=== PATIENT | female | born 1930 | race Caucasian/White ===

== ENCOUNTER → 2018-01-15 | Outpatient (CLI) | payer MEDICARE ==
[~2018-01-15] MED LIST: ALLOPURINOL100 MG PO; AMLODIPINE BESY10 MG PO; ASPIR 8181 MG PO; CARVEDILOL12.5 MG PO; CLINDAMYCIN HC150 MG PO; DIOVAN80 MG PO; FUROSEMIDE40 MG PO; PLAVIX75 MG PO
--- NOTE | 2018-01-15 17:38 | Diagnostic Imaging Report ---
PROCEDURE: Frontal and lateral views of the chest. COMPARISON: Patients [facility], DX, CHEST 2 VIEWS, 07/24/2015, 8:48. Patients [facility], DX, CHEST 2 VIEWS, 09/20/2016, 11:52. INDICATIONS: BREAST CANCER, LEFT SIDE CHEST MASSES, RIGHT HIP PAIN FINDINGS: Lines/tubes: None. Lungs: The lungs are well inflated and grossly clear. Mild increased attenuation in the lateral right midlung is stable and likely represents overlying soft tissue. There is no evidence of consolidation or pulmonary edema. Pleura: There is no pleural effusion or pneumothorax. Heart and mediastinum: Cardiac silhouette is unremarkable. Pulmonary vasculature is normal. Bones: No acute bony abnormality. IMPRESSION: 1. no consolidation or effusion. 2. Mildly increased attenuation in the lateral right midlung is stable and likely represents overlying soft tissue. CT chest may be obtained for further evaluation, if there is clinical concern for pulmonary metastases Mannie Lau M.D. Dictated by: Mannie Lau M.D. on 01/15/2018 at 17:43 Electronically approved by: Mannie Lau M.D. on 01/15/2018 at 17:43
--- NOTE | 2018-01-15 18:44 | Diagnostic Imaging Report ---
PROCEDURE:HIP RIGHT 2-3 VW (+/- PELVIS) COMPARISON:None. INDICATIONS:RIGHT HIP PAIN FINDINGS: BONES:Generalized osteopenia, which limits evaluation of the bony structures. Orthopedic hardware in the proximal right femur, which is intact and in satisfactory alignment. Moderate degenerative changes in the right hip joint. No lytic or blastic lesions. No acute, displaced fractures or dislocations. SOFT TISSUES:Vascular calcifications.. OTHER:Negative. CONCLUSION: 1. Generalized osteopenic which limits evaluation of bony structures. No acute displaced fracture or dislocation, within the limitations of the study. 2. Intact orthopedic hardware in the proximal right femur. 3. Vascular calcifications. Mannie Lau M.D. Dictated by: Mannie Lau M.D. on 01/15/2018 at 18:48 Electronically approved by: Mannie Lau M.D. on 01/15/2018 at 18:48
== END ==
LOC: RAD 16:21
PROVIDERS: ATTEND Family Medicine
DX: C50.419 Malignant neoplasm of upper-outer quadrant of unspecified female breast (principal); M25.551 Pain in right hip
CPT/HCPCS: 71046

== ENCOUNTER 2018-01-22 00:02 | Inpatient (IN) | payer MEDICARE ==
[2018-01-22] VITALS (7 sets, daily range): BP systolic 125–166; BP diastolic 58–69
[~2018-01-22] VITALS: Ht 152.4 cm; Wt 58.7 kg
[2018-01-22 01:16] LABS: BASOPHILS % 0.2 % (0.0-1.0); EOSINOPHILS # (AUTO) 0.3 (0.0-0.4); EOSINOPHILS % 1.9 % (0.0-6.0); HEMOGLOBIN 9.2 g/dL (12.0-16.0); LYMPHOCYTES # (AUTO) 1.5 (1.0-3.2); LYMPHOCYTES % 9.6 % (18.0-39.1); MEAN CORPUSCULAR HEMOGLOBIN 29.1 pg (28-32); MEAN CORPUSCULAR HGB CONC 31.7 g/dL (31-35); MEAN CORPUSCULAR VOLUME 91.8 fL (81-99); MONOCYTES # (AUTO) 1.3 (0.2-0.8); MONOCYTES % 8.2 % (4.4-11.3); NEUTROPHILS # (AUTO) 12.3 (2.1-6.9); NEUTROPHILS % 79.6 % (38.7-80.0); PLATELET COUNT 350 x10e3/uL (140-360); RED BLOOD COUNT 3.16 x10e6/uL (3.6-5.1); RED CELL DISTRIBUTION WIDTH 14.6 % (11.7-14.4)
[2018-01-22 01:34] LABS: INR 1.13; PROTHROMBIN TIME 13.6 seconds (11.9-14.5)
[2018-01-22 01:35] LABS: PARTIAL THROMBOPLASTIN TIME 47.1 seconds (23.8-35.5)
[2018-01-22 01:43] LABS: ALBUMIN 3.5 g/dL (3.5-5.0); ANION GAP 15.1 mmol/L (8-16); CREATININE, SERUM 1.77 mg/dL (0.57-1.11); POTASSIUM 5.1 mmol/L (3.5-5.1)
[2018-01-22] MEDS ORDERED: SODIUM CHLORIDE 0.9% 1000ML 1,000 ML ONE (02:28)
[2018-01-22] MEDS ORDERED: ONDANSETRON HCL INJ 2 MG/ML VIAL IV PRN (02:45)
[2018-01-22] MEDS ORDERED: ACETAMINOPHEN 325 MG TAB PO PRN (02:45)
[2018-01-22] MEDS ORDERED: MORPHINE SULFATE 2 MG/ML SYR IV PRN (02:45)
[2018-01-22] MEDS: SODIUM CHLORIDE 0.9% 1000ML 1,000 ML IV SCH ×2 (03:00→20:00)
[2018-01-22] MEDS: CLINDAMYCIN 600MG/D5W 50ML 50 ML IV SCH ×3 (03:00→17:58)
[2018-01-22] MEDS: PIPERACILLIN/TAZO 2.25 GM 50 ML IV SCH ×3 (03:35→17:16)
[2018-01-22] MEDS ORDERED: POTASSIUM CHLO20 ME1 PO (03:35)
[2018-01-22] MEDS ORDERED: ANASTROZOLE1 MG PO (03:35)
[2018-01-22 03:38] LABS: BILIRUBIN,URINE NEGATIVE (NEGATIVE); CLARITY,URINE HAZY (CLEAR); COLOR,URINE YELLOW (YELLOW); KETONES,URINE NEGATIVE (NEGATIVE); LEUKOCYTE ESTERASE ,URINE TRACE (NEGATIVE); NITRITE,URINE NEGATIVE (NEGATIVE); PROTEIN,URINE DIPSTICK NEGATIVE (NEGATIVE); URINE UROBILINOGEN 0.2 mg/dL (0.2 - 1)
[2018-01-22 03:44] LABS: BACTERIA,URINE MODERATE /HPF; EPITHELIAL CELLS,URINE MODERATE /LPF; RBC,URINE >50 /HPF (0-5); WBC,URINE (MAN) 0-5 /HPF (0-5)
[2018-01-22] MEDS: FUROSEMIDE 20 MG TAB PO SCH (16:45)
[2018-01-22] MEDS: CARVEDILOL 12.5 MG TAB PO SCH (16:50)
[2018-01-22] MEDS ORDERED: MUPIROCIN 2% OINT 22 GM TUBE TOP NR (17:00)
[2018-01-23] VITALS (7 sets, daily range): BP systolic 139–159; BP diastolic 53–71
[2018-01-23] MEDS: PIPERACILLIN/TAZO 2.25 GM 50 ML IV SCH ×2 (00:20→11:00)
[2018-01-23] MEDS: CLINDAMYCIN 600MG/D5W 50ML 50 ML IV SCH ×4 (01:50→17:28)
[2018-01-23 05:06] LABS: BASOPHILS % 0.1 % (0.0-1.0); EOSINOPHILS # (AUTO) 0.4 (0.0-0.4); EOSINOPHILS % 3.7 % (0.0-6.0); HEMATOCRIT 24.4 % (34.2-44.1); HEMOGLOBIN 7.8 g/dL (12.0-16.0); LYMPHOCYTES # (AUTO) 1.2 (1.0-3.2); LYMPHOCYTES % 12.3 % (18.0-39.1); MEAN CORPUSCULAR HEMOGLOBIN 30.1 pg (28-32); MEAN CORPUSCULAR VOLUME 94.2 fL (81-99); MONOCYTES # (AUTO) 0.7 (0.2-0.8); MONOCYTES % 6.8 % (4.4-11.3); NEUTROPHILS # (AUTO) 7.6 (2.1-6.9); NEUTROPHILS % 76.6 % (38.7-80.0); PLATELET COUNT 244 x10e3/uL (140-360); RED BLOOD COUNT 2.59 x10e6/uL (3.6-5.1); RED CELL DISTRIBUTION WIDTH 14.6 % (11.7-14.4)
[2018-01-23] MEDS: SODIUM CHLORIDE 0.9% 1000ML 1,000 ML IV SCH (05:10)
[2018-01-23 05:23] LABS: ALBUMIN 2.7 g/dL (3.5-5.0); ANION GAP 10.8 mmol/L (8-16); CALCIUM 9.6 mg/dL (8.4-10.2); CREATININE, SERUM 1.56 mg/dL (0.57-1.11); POTASSIUM 3.8 mmol/L (3.5-5.1)
[2018-01-23] MEDS ORDERED: AMLODIPINE BESYLATE 5 MG TAB PO SCH (09:00)
[2018-01-23] MEDS ORDERED: BALSAM PERU/CASTOR OIL 60 GM OINT...G. TP SCH (09:00)
[2018-01-23] MEDS ORDERED: POTASSIUM CHLORIDE 20 MEQ TAB CR PO SCH (09:00)
[2018-01-23] MEDS ORDERED: ASPIRIN 81 MG CHEW TAB PO SCH (09:00)
[2018-01-23] MEDS ORDERED: ANASTROZOLE 1 MG TAB PO SCH (09:00)
[2018-01-23] MEDS ORDERED: CLOPIDOGREL BISULFATE 75 MG TAB PO SCH (09:00)
[2018-01-23] MEDS: CARVEDILOL 12.5 MG TAB PO SCH ×2 (09:14→17:28)
[2018-01-23] MEDS: FUROSEMIDE 20 MG TAB PO SCH ×2 (09:15→17:28)
== END 2018-01-23 18:06 | DRG 598 ==
LOC: ER 00:02 → ERHOLD 02:50 → MED/SURG3 03:58
DX: C50.912 Malignant neoplasm of unspecified site of left female breast (principal); N17.9 Acute kidney failure, unspecified; L03.313 Cellulitis of chest wall; N28.9 Disorder of kidney and ureter, unspecified; E83.52 Hypercalcemia; I10 Essential (primary) hypertension; J44.9 Chronic obstructive pulmonary disease, unspecified; Z66 Do not resuscitate; E87.5 Hyperkalemia; M19.90 Unspecified osteoarthritis, unspecified site
CPT/HCPCS: 36415; 80053; 81001; 83605; 85025; 85610; 85730; 86850; 86900; 87040; 87071; 87086; 87186; 87205; 99284; J2270; J2543; J7030